=== PATIENT | female | born 1985 | race Hispanic/Latino ===

== ENCOUNTER 2019-05-14 17:39 | Emergency (ER) | payer OTHER ==
[2019-05-14 18:47] LABS: Basophils % 1.1 % (0-1.3); Hematocrit 41.5 % (36.0-45.0); Lymphocytes % 34.3 % (15.3-44.8); MPV 8.2 fL (7.6-11.3); Protime INR 1.08; RBC Red Blood Cell Count 4.95 M/uL (3.86-4.86)
[2019-05-14 18:52] LABS: Urine Blood NEGATIVE (NEG); Urine Glucose NEGATIVE (NEG); Urine Protein NEGATIVE (NEG)
[2019-05-14 19:21] LABS: ALT/SGPT 181 U/L (12-78); AST/SGOT 97 U/L (15-37); Albumin 4.3 g/dL (3.4-5.0); Alkaline Phosphatase 86 U/L (45-117); BUN Blood Urea Nitrogen 10 mg/dL (7-18); Bicarbonate 27 mmol/L (21-32); Bilirubin Direct 0.2 mg/dL (0-0.2); Glucose Level 88 mg/dL (74-106); Magnesium 2.1 mg/dL (1.8-2.4); NT PRO-BNP 19 pg/mL (<125); Potassium 3.7 mmol/L (3.5-5.1); Protein, Total 8.9 g/dL (6.4-8.2); Sodium Level 140 mmol/L (136-145); Troponin (Emerg Dept Use Only) < 0.02 ng/mL (0.0-0.045)
[2019-05-14] MEDS ORDERED: ASPIRIN 81 MG CHEWABLE TABLET ONE (19:37)
[2019-05-14] MEDS ORDERED: ENALAPRILAT 1.25 MG/ML VIAL IV ONE (19:38)
[2019-05-14] MEDS ORDERED: METOPROLOL TAR 50 MG TAB ONE (19:38)
--- NOTE | 2019-05-14 19:49 | ER ---
Nurse's Notes [facility] Name: Kellie Mccabe Age: 33 yrs Sex: Female : 1985 Arrival Date: 05/14/2019 Time: 17:43 Bed 7 Private MD: Diagnosis: Essential (primary) hypertension;Obesity, unspecified Presentation: 05/14 17:48 Presenting complaint: Patient states: HTN since yesterday, blurry vision, eye sv twitching, fatigue x 1 month. BP 163/104 today. Transition of care: patient was not received from another setting of care. Onset of symptoms was April 2019. Risk Assessment: Do you want to hurt yourself or someone else? Patient reports no desire to harm self or others. Care prior to arrival: None. 17:48 Method Of Arrival: Ambulatory sv 17:48 Acuity: HERIBERTO 2 sv 18:01 Initial Sepsis Screen: Does the patient meet any 2 criteria? No. Patient's initial la1 sepsis screen is negative. Does the patient have a suspected source of infection? No. Patient's initial sepsis screen is negative. Triage Assessment: 17:48 General: Appears uncomfortable, Behavior is cooperative, appropriate for age, Reports sv fatigue for. Neuro: Level of Consciousness is awake, alert, obeys commands, Gait is steady, Speech is normal, Reports blurred vision. Historical: - Allergies: 17:50 No Known Allergies; sv - Home Meds: 17:50 None [Active]; sv - PMHx: 17:50 epilepsy; sv - PSHx: 17:50 None; sv - Immunization history:: Adult Immunizations. - Social history:: Smoking status: Patient/guardian denies using tobacco. - Ebola Screening: : No symptoms or risks identified at this time. - Family history:: not pertinent. Screenin:00 Abuse screen: Denies threats or abuse. Nutritional screening: No deficits noted. la1 Tuberculosis screening: No symptoms or risk factors identified. Fall Risk None identified. Assessment: 17:59 General: Appears in no apparent distress. Behavior is calm, cooperative. Pain: Denies la1 pain. Neuro: Level of Consciousness is awake, alert, obeys commands, Oriented to person, place, time, situation, Territory Account Executive are equal bilaterally Moves all extremities. Full function Gait is steady, Speech is normal, Facial symmetry appears normal, Pupils are PERRLA, Intact. Cardiovascular: Capillary refill < 3 seconds Patient's skin is warm and dry. Respiratory: Airway is patent Respiratory effort is even, unlabored, Respiratory pattern is regular, symmetrical. GI: No signs and/or symptoms were reported involving the gastrointestinal system. : No signs and/or symptoms were reported regarding the genitourinary system. Vital Signs: 17:50 BP 153 / 112; Pulse 84; Resp 16; Temp 98.3; Pulse Ox 99% ; Weight 102.51 kg; Height 5 sv ft. 1 in. (154.94 cm); 19:43 BP 142 / 97; Pulse 87; Resp 24; Pulse Ox 99% on R/A; ak1 19:58 BP 127 / 80; Pulse 83; Resp 20; Temp 98.1; Pulse Ox 99% on R/A; ak1 17:50 Body Mass Index 42.70 (102.51 kg, 154.94 cm) sv ED Course: 17:43 Patient arrived in ED. mr 17:50 Triage completed. sv 17:50 Arm band placed on. sv 17:55 Queta Mancini, RN is Primary Nurse. iw 18:00 Patient has correct armband on for positive identification. la1 18:18 Bharathi Christianson MD is Attending Physician. sondra 19:11 XRAY Chest (1 view) In Process Unspecified. EDMS 19:48 Nino Greenberg MD is Referral Physician. sondra 19:58 No provider procedures requiring assistance completed. IV discontinued, intact, ak1 bleeding controlled, No redness/swelling at site. Pressure dressing applied, 22g in right AC d/c'd at discharge. Administered Medications: 19:42 Drug: Aspirin Chewable Tablet 324 mg Route: PO; ak1 19:43 Follow up: Response: No adverse reaction ak1 19:42 Drug: Enalaprilat 1.25 mg Route: IV; Rate: per protocol; Site: right antecubital; ak1 19:59 Follow up: IV Status: Completed infusion ak1 19:43 Drug: Lopressor (metoprolol TARTRATE) 50 mg Route: PO; ak1 19:43 Follow up: Response: No adverse reaction ak1 Outcome: 19:48 Discharge ordered by . sondra 19:59 Condition: good ak1 19:59 Discharge instructions given to patient, Instructed on discharge instructions, follow up and referral plans. medication usage, Demonstrated understanding of instructions, follow-up care, medications, Prescriptions given X 2. 20:06 Patient left the ED. ak1 20:07 Discharged to home ambulatory, with family. ak1 Signatures: Dispatcher [employer] Ina Krause RN RN sv Anderson, Corey, MD MD cha Rivera, Rohini mr Queta Mancini RN RN iw Attema, Lee, RN RN la1 Krenek, Amber RN RN ak1 Corrections: (The following items were deleted from the chart) 17:51 17:50 Temp 98.3F; 102.51 kg; Height 5 ft. 1 in.; BMI: 42.7; sv sv 17:52 17:48 Acuity: HERIBERTO 3 sv sv 17:52 17:50 Pulse 84bpm; Resp 16bpm; Pulse Ox 99%; Temp 98.3F; 102.51 kg; Height 5 ft. 1 in.; sv BMI: 42.7; sv
--- NOTE | 2019-05-14 19:49 | EDPHYS ---
Physician Documentation [facility] Name: Kellie Mccabe Age: 33 yrs Sex: Female : 1985 Arrival Date: 05/14/2019 Time: 17:43 Bed 7 Private MD: EZIO Physician Bharathi Christianson HPI: 05/14 19:17 This 33 yrs old Female presents to ER via Ambulatory with complaints of High sondra Blood Pressure, Blurred Vision. 19:17 The patient has elevated blood pressure and discovered this at home. Onset: The sondra symptoms/episode began/occurred 1 month(s) ago. Modifying factors: The symptoms are aggravated by activity, The symptoms are alleviated by remaining still. Associated signs and symptoms: The patient has no apparent associated signs or symptoms. Severity of symptoms: At its worst the blood pressure was mild, in the emergency department the blood pressure is unchanged. The patient has experienced similar episodes in the past, several times. Historical: - Allergies: 17:50 No Known Allergies; sv - Home Meds: 17:50 None [Active]; sv - PMHx: 17:50 epilepsy; sv - PSHx: 17:50 None; sv - Immunization history:: Adult Immunizations. - Social history:: Smoking status: Patient/guardian denies using tobacco. - Ebola Screening: : No symptoms or risks identified at this time. - Family history:: not pertinent. ROS: 19:17 Constitutional: Negative for fever, chills, and weight loss, Eyes: Negative for injury, sondra pain, redness, and discharge, ENT: Negative for injury, pain, and discharge, Neck: Negative for injury, pain, and swelling, Cardiovascular: Negative for chest pain, palpitations, and edema, Respiratory: Negative for shortness of breath, cough, wheezing, and pleuritic chest pain, Abdomen/GI: Negative for abdominal pain, nausea, vomiting, diarrhea, and constipation, Back: Negative for injury and pain, : Negative for injury, bleeding, discharge, and swelling, MS/Extremity: Negative for injury and deformity, Skin: Negative for injury, rash, and discoloration, Neuro: Negative for headache, weakness, numbness, tingling, and seizure. 19:17 MS/extremity: Negative for acute changes. Exam: 19:17 Constitutional: This is a well developed, well nourished patient who is awake, alert, sondra and in no acute distress. Head/Face: Normocephalic, atraumatic. Eyes: Pupils equal round and reactive to light, extra-ocular motions intact. Lids and lashes normal. Conjunctiva and sclera are non-icteric and not injected. Cornea within normal limits. Periorbital areas with no swelling, redness, or edema. ENT: Nares patent. No nasal discharge, no septal abnormalities noted. Tympanic membranes are normal and external auditory canals are clear. Oropharynx with no redness, swelling, or masses, exudates, or evidence of obstruction, uvula midline. Mucous membranes moist. Neck: Trachea midline, no thyromegaly or masses palpated, and no cervical lymphadenopathy. Supple, full range of motion without nuchal rigidity, or vertebral point tenderness. No Meningismus. Chest/axilla: Normal chest wall appearance and motion. Nontender with no deformity. No lesions are appreciated. Cardiovascular: Regular rate and rhythm with a normal S1 and S2. No gallops, murmurs, or rubs. Normal PMI, no JVD. No pulse deficits. Respiratory: Lungs have equal breath sounds bilaterally, clear to auscultation and percussion. No rales, rhonchi or wheezes noted. No increased work of breathing, no retractions or nasal flaring. Abdomen/GI: Soft, non-tender, with normal bowel sounds. No distension or tympany. No guarding or rebound. No evidence of tenderness throughout. Back: No spinal tenderness. No costovertebral tenderness. Full range of motion. Female : Normal external genitalia. Skin: Warm, dry with normal turgor. Normal color with no rashes, no lesions, and no evidence of cellulitis. MS/ Extremity: Pulses equal, no cyanosis. Neurovascular intact. Full, normal range of motion. Neuro: Awake and alert, GCS 15, oriented to person, place, time, and situation. Cranial nerves II-XII grossly intact. Motor strength 5/5 in all extremities. Sensory grossly intact. Cerebellar exam normal. Normal gait. Psych: Awake, alert, with orientation to person, place and time. Behavior, mood, and affect are within normal limits. 19:17 Musculoskeletal/extremity: DVT Exam: No signs of deep vein thrombosis. no pain, no swelling, no tenderness, negative Homans' sign noted on exam, no appreciated bluish discoloration, no erythema, no increased warmth. Vital Signs: 17:50 BP 153 / 112; Pulse 84; Resp 16; Temp 98.3; Pulse Ox 99% ; Weight 102.51 kg; Height 5 sv ft. 1 in. (154.94 cm); 19:43 BP 142 / 97; Pulse 87; Resp 24; Pulse Ox 99% on R/A; ak1 19:58 BP 127 / 80; Pulse 83; Resp 20; Temp 98.1; Pulse Ox 99% on R/A; ak1 17:50 Body Mass Index 42.70 (102.51 kg, 154.94 cm) sv MDM: 18:18 Patient medically screened. [facility] 19:19 Data reviewed: vital signs, nurses notes, lab test result(s), EKG, radiologic studies, [facility] CT scan, plain films. 05/14 18:15 Order name: Basic Metabolic Panel; Complete Time: 19:24 [facility] 05/14 18:15 Order name: CBC with Diff; Complete Time: 19:16 [facility] 05/14 18:15 Order name: LFT's; Complete Time: 19:24 [facility] 05/14 18:15 Order name: Magnesium; Complete Time: 19:24 [facility] 05/14 18:15 Order name: NT PRO-BNP; Complete Time: 19:24 [facility] 05/14 18:15 Order name: PT-INR; Complete Time: 19:16 [facility] 05/14 18:15 Order name: Troponin (emerg Dept Use Only); Complete Time: 19:24 [facility] 05/14 18:15 Order name: XRAY Chest (1 view) [facility] 05/14 18:19 Order name: Urine Culture [facility] 05/14 18:36 Order name: Urine Dipstick--Ancillary (enter results) 05/14 18:36 Order name: Urine --Ancillary (enter results) 05/14 18:15 Order name: EKG; Complete Time: 18:16 [facility] 05/14 18:15 Order name: Cardiac monitoring; Complete Time: 19:34 [facility] 05/14 18:15 Order name: EKG - Nurse/Tech; Complete Time: 20:00 [facility] 05/14 18:15 Order name: IV Saline Lock; Complete Time: 19:34 [facility] 10/03 18:15 Order name: Labs collected and sent; Complete Time: 19:34 [facility] 05/14 18:15 Order name: O2 Per Protocol; Complete Time: 19:34 [facility] 05/14 18:15 Order name: O2 Sat Monitoring; Complete Time: 19:34 [facility] 05/14 18:19 Order name: Urine Dipstick-Ancillary (obtain specimen); Complete Time: 20:00 [facility] Administered Medications: 19:42 Drug: Aspirin Chewable Tablet 324 mg Route: PO; ak1 19:43 Follow up: Response: No adverse reaction ak1 19:42 Drug: Enalaprilat 1.25 mg Route: IV; Rate: per protocol; Site: right antecubital; ak1 19:59 Follow up: IV Status: Completed infusion ak1 19:43 Drug: Lopressor (metoprolol TARTRATE) 50 mg Route: PO; ak1 19:43 Follow up: Response: No adverse reaction ak1 Disposition: 05/14/19 19:48 Discharged to Home. Impression: Essential (primary) hypertension, Obesity, unspecified. - Condition is Stable. - Discharge Instructions: Hypertension, Obesity, Adult, Hypertension, [id number], How to Take Your Blood Pressure, [id number], Aspirin and Your Heart, Managing Your Hypertension. - Prescriptions for Toprol XL 50 mg Oral Tablet - take 1 tablet by ORAL route once daily; 20 tablet. Lisinopril 5 mg Oral Tablet - take 1 tablet by ORAL route once daily; 20 tablet. - Medication Reconciliation Form, Thank You Letter, Antibiotic Education, Prescription Opioid Use form. - Follow up: Private Physician; When: 2 - 3 days; Reason: Recheck today's complaints, Continuance of care, Re-evaluation by your physician. Follow up: Nino Greenberg; When: 2 - 3 days; Reason: Recheck today's complaints, Continuance of care, Re-evaluation by your physician. - Problem is new. - Symptoms have improved. Signatures: Dispatcher [employer] Ina Krause RN RN sv Anderson, Corey, MD MD cha Attema, Lee RN RN la1 Nadeen Nelson RN RN ak1 Corrections: (The following items were deleted from the chart) 19:26 19:25 Musculoskeletal/extremity: DVT Exam: sondra amaro 20:06 19:48 05/14/2019 19:48 Discharged to Home. Impression: Essential (primary) ak1 hypertension; Obesity, unspecified. Condition is Stable. Discharge Instructions: Hypertension, Obesity, Adult, Hypertension, [id number], How to Take Your Blood Pressure, [id number], Aspirin and Your Heart, Managing Your Hypertension. Prescriptions for Toprol XL 50 mg Oral Tablet - take 1 tablet by ORAL route once daily; 20 tablet, Lisinopril 5 mg Oral Tablet - take 1 tablet by ORAL route once daily; 20 tablet. and Forms are Medication Reconciliation Form, Thank You Letter, Antibiotic Education, Prescription Opioid Use. Follow up: Private Physician; When: 2 - 3 days; Reason: Recheck today's complaints, Continuance of care, Re-evaluation by your physician. Follow up: Nino Greenberg; When: 2 - 3 days; Reason: Recheck today's complaints, Continuance of care, Re-evaluation by your physician. Problem is new. Symptoms have improved. sondra
[2019-05-14 20:25] VITALS: O2SAT 99
[2019-05-14 20:28] VITALS: BP 127/80; TEMP 98.1
--- NOTE | 2019-05-16 04:45 | EKG ---
Test Date: 2019-05-14 Test Time: 19:27:04 Supervisor Claims: PHILOMENA MEASUREMENT RESULTS: Intervals: Rate: 82 [place]: 164 QRSD: 84 QT: 390 QTc: 455 [place]: P: 59 [place]: 164 QRS: 47 T: 51 INTERPRETIVE STATEMENTS: Normal sinus rhythm with sinus arrhythmia Possible Left atrial enlargement Abnormal ECG No previous ECG available for comparison Electronically Signed On 05-16-19 04:44:54 CDT by Yomi Alonzo
--- NOTE | 2019-05-16 14:43 | RAD REPORT ---
EXAM DESCRIPTION: Kai Single View05/15/2019 7:04 pm CLINICAL HISTORY: Hypertension COMPARISON: none FINDINGS: The lungs appear clear of acute infiltrate. The heart is normal size IMPRESSION: No acute abnormalities displayed
== END 2019-05-14 20:06 | disposition home or self-care (01) ==
LOC: ER 17:39
DX: I10 Essential (primary) hypertension (principal); E66.9 Obesity, unspecified
CPT/HCPCS: 36415; 71045; 80048; 80076; 81003; 81025; 83735; 83880; 84484; 85025; 85610; 87086; 87088; 93005; 96365; 99283